=== PATIENT | female | born 1980 | race Caucasian/White ===

== ENCOUNTER → 2016-09-02 | Day surgery (SDC) | payer OTHER ==
[~2016-09-02] MED LIST: BUPIVACAINE/EPINEPHRINE 0.25% 50 ML VIAL ONE; LACTATED RINGER'S 1000 ML INJ 1,000 ML ONE; MIDAZOLAM HCL 2 MG/2 ML VIAL ONE; ONDANSETRON HCL 4 MG/2 ML VIAL IV PUSH ONE; PROPOFOL 200 MG/20 ML AMP IV ONE; ceFAZolin 2 GM PREMIX 50 ML ONE
--- NOTE | 2016-09-02 19:02 | TN ---
cc: ISRAEL ZALDIVAR M.D. DATE OF SURGERY 09/02/2016 PREOPERATIVE DIAGNOSIS Supraumbilical hernia, symptomatic. POSTOPERATIVE DIAGNOSIS Supraumbilical hernia, symptomatic. PROCEDURE Open repair supraumbilical hernia with mesh. SURGEON Dr. Israel Zaldivar [employer]ATFORM LOADER SEUN [facility] ANESTHESIA General. INDICATIONS This a very pleasant 35-year-old woman who has had exacerbations of hernia protrusions above the umbilicus following activities, exercise and eating certain types of food. She has opted to pursue operative repair. She does a lot of exercise and wants to return to her exercise activities. INTRAOPERATIVE FINDINGS A horizontal split in the fascia about 2-3 cm above the umbilicus. Fatty tissue protruding through the defect consistent with omentum. Defect was primarily repaired and covered with a about a 3.5 x 6.0 cm piece of mesh. ESTIMATED BLOOD LOSS Minimal. The surgical procedure was assisted by my nurse practitioner. My GRANULATING BLENDER's presence was necessary throughout the case to assist in adequate visualization of the hernia defect and for mesh placement. The nurse practitioner assisted me throughout the duration of procedure. Her skill set was medically necessary to complete the procedure. During the surgical case the rn medical surgical was working at the back table and the nurse practitioner was directly assisting me. DESCRIPTION OF PROCEDURE IN DETAIL The patient identified as Ktahy Leonard, taken to the operating room and placed in the supine position. She had been marked preoperatively the location of her hernia. Sequential compression devices were placed on bilateral lower extremities. Following induction of adequate general anesthesia the patient's abdomen was prepped and draped in usual sterile fashion with Betadine. A time-out procedure was performed. Following completion of time-out procedure to everyone's satisfaction within the room, proposed transverse incision was made with a marking pen in the supraumbilical position and local anesthetic was placed. Incision was carried out with scalpel and hemostasis controlled with electrocautery. Dissection continued posteriorly through subcutaneous fatty tissue until herniated tissue was identified. It was from surrounding tissues using sharp dissection and a transverse slit in the fascia creating the hernia defect was identified and uncovered. The anterior fascia circumferentially around for about a 2 cm border, about 3 cm superiorly was then created using blunt dissection, sharp dissection and electrocautery. The defect was primarily approximated with interrupted inverted 2-0 Prolene sutures. Due to the patient's level of activity it was felt the risk of recurrence was high with only primary repair and therefore a piece of mesh was customized and sized, overlying the repair in an onlay position and held in position with interrupted 2-0 Vicryl sutures. Irrigation ensued. There was no evidence of bleeding. The deep subcutaneous fatty tissue was approximated posteriorly with interrupted 3-0 Vicryl sutures. A single 3-0 0 Vicryl was placed just beneath the dermis at the midline and the skin was closed with running 4-0 Monocryl subcuticular suture. Dressings were applied with Mastisol one-half inch brown Steri-Strips, gauze and Tegaderm. The patient tolerated the procedure without apparent complication. Sponge, needle and instrument counts were correct at the case. MD SULTANA Soni/MIKIK /2:38 PM /6:42 PM ELLEN
== END | disposition home or self-care (01) ==
LOC: ESDC 11:16
PROVIDERS: ATTEND Surgery Trauma Surgery
DX: K42.9 Umbilical hernia without obstruction or gangrene (principal)
CPT/HCPCS: 00830; 49505; J0690; J2250; J2405; J3010; J7120; C1781